=== PATIENT | male | born 1980 | race Caucasian/White ===

== ENCOUNTER 2019-11-21 15:39 | Emergency (ER) | payer BC, OTHER ==
[~2019-11-21] VITALS: Ht 188 cm; Wt 110.3 kg
[2019-11-21 15:39] VITALS: BP 160/88
[2019-11-21] MEDS ORDERED: BENZOCAINE 20% GEL 9GM TUBE (ANBESOL MAX STRENGTH) TOP ONE (16:15)
[2019-11-21] MEDS ORDERED: AUGMENTIN 875 MG TAB PO ONE (16:15)
[2019-11-21] MEDS ORDERED: AUGM875T28 PO (16:23)
== END 2019-11-21 16:27 | disposition home or self-care (01) ==
LOC: M ED 15:39
DX: K04.7 Periapical abscess without sinus (principal); Z88.5 Allergy status to narcotic agent; Z88.6 Allergy status to analgesic agent; Z88.8 Allergy status to other drugs, medicaments and biological substances

== ENCOUNTER → 2020-05-20 | Outpatient (CLI) | payer SELFPAY ==
[~2020-05-20] MED LIST: AUGM875T28 PO
== END ==
LOC: M LABSMTC 13:06
PROVIDERS: ATTEND Pediatrics
DX: Z20.822 Contact with and (suspected) exposure to COVID-19 (principal)

== ENCOUNTER → 2020-05-23 | Outpatient (CLI) | payer OTHER, BC ==
--- NOTE | 2020-05-23 14:05 | REP ---
INDICATION: OPEN WOUND OF MIDDLE FINGER COMPARISON: None. TECHNIQUE: AP, lateral, bilateral oblique views right 3rd digit. FINDINGS: Laceration overlying the distal aspect of the middle phalanx and DIP joint. No obvious acute osseous injury. No subcutaneous emphysema or foreign body IMPRESSION: Laceration. No evidence for osseous involvement. <Electronically signed by Shane Wu > 05/23/20 [id number]
== END ==
LOC: M WUC 13:26
PROVIDERS: ATTEND Physician Assistant
DX: S61.302A Unspecified open wound of right middle finger with damage to nail, initial encounter (principal); X58.XXXA Exposure to other specified factors, initial encounter; Y92.89 Other specified places as the place of occurrence of the external cause; Y93.89 Activity, other specified; Y99.8 Other external cause status

== ENCOUNTER 2025-05-05 18:48 | Emergency (ER) | payer BC, OTHER ==
[~2025-05-05] VITALS: Ht 188 cm; Wt 104.5 kg
[2025-05-05 18:49] VITALS: BP 118/67; O2SAT 93
[2025-05-05] MEDS ORDERED: IBUP200C25 PO (18:53)
[2025-05-05] MEDS: ACETAMINOPHEN 500 MG TAB PO ONE (18:55)
[2025-05-05] MEDS: ONDANSETRON 4MG ORAL DISINTEGRATING TAB PO ONE (19:10)
[2025-05-05 20:17] VITALS: TEMP 99.3
[2025-05-05] MEDS ORDERED: DEXA2TA PO (20:35)
[2025-05-05] MEDS ORDERED: VENTAER INH (20:35)
[2025-05-05] MEDS: ALBUTEROL 90 MCG/ACT 8 GM HFA INHALER INH ONE ×2 (20:46)
== END 2025-05-05 20:50 | disposition home or self-care (01) ==
LOC: M ED 18:48
DX: U07.1 COVID-19 (principal); J09.X2 Influenza due to identified novel influenza A virus with other respiratory manifestations; J45.909 Unspecified asthma, uncomplicated; F17.210 Nicotine dependence, cigarettes, uncomplicated; Z88.5 Allergy status to narcotic agent; Z79.1 Long term (current) use of non-steroidal anti-inflammatories (NSAID); Z79.51 Long term (current) use of inhaled steroids